=== PATIENT | female | born 1980 | race African-American/Black ===

== ENCOUNTER 2018-12-28 07:50 | Day surgery (SDC) | payer BC ==
[2018-12-24 15:52] VITALS: BMI 60.7
[2018-12-28] MEDS ORDERED: MIDAZOLAM HCL 2 MG/2 ML SINGLE DOSE VIAL ONE ×2 (10:32→11:11)
[2018-12-28] MEDS ORDERED: BUPIVACAINE HCL/PF 2.5 MG/ML - 30 ML VIAL IJ ONE (11:23)
[2018-12-28] MEDS ORDERED: BUPIVACAINE HCL/PF 0.25% (2.5MG/ML) 10 ML VIAL IJ ONE (11:35)
[2018-12-28] MEDS ORDERED: ONDANSETRON 4 MG/2 ML VIAL IVPUSH PRN (11:45)
[2018-12-28] MEDS ORDERED: PROMETHAZINE HCL 25 MG/1 ML VIAL IVPUSH PRN (11:45)
[2018-12-28] MEDS ORDERED: oxyCODONE HCL 5 MG TABLET PO PRN ×2 (11:45→14:18)
--- NOTE | 2018-12-28 12:52 | OP ---
DATE OF OPERATION: 12/28/2018 Done at [facility] SURGEON: Rey Ferrari MD BLOCK INSPECTOR: MAURICIO Del Toro PREOPERATIVE DIAGNOSES: 1. Right knee medial and lateral meniscal tear. 2. Right knee cartilage injury. 3. Right knee synovitis. POSTOPERATIVE DIAGNOSES: 1. Right knee medial and lateral meniscal tear. 2. Right knee cartilage injury. 3. Right knee synovitis. PROCEDURE: 1. Right knee arthroscopy, partial meniscectomy medial and lateral meniscus, CPT code 07433. 2. Right knee arthroscopy with chondroplasty and abrasion-plasty, CPT code 51210. 3. Right knee arthroscopy with synovectomy, CPT code 95524. FINDINGS: 1. Medial meniscus [id number] horn tear. 2. Lateral meniscus anterior 1/3 tear undersurface. 3. Synovitis patellofemoral medial and lateral notch area. 4. Central grade 2-3 cartilage injury 2 cm x 1 cm anterior medial femoral condyle. 5. ACL and PCL intact. 6. Diffuse grade 1-2 cartilage changes lateral joint line. 7. Central grade 2 cartilage injury patella with grade 2-4 changes central portion patellofemoral trochlea. PROCEDURE: Informed consent was obtained. The patient came to the operating room, where the lower extremity was prepped and draped in a sterile fashion. A tourniquet was placed on the upper thigh, but not inflated. Using standard arthroscopic technique, a lateral incision and portal was made to allow for introduction of the camera into the suprapatellar bursa. This was then taken to the medial joint line, where under direct visualization, a medial incision and portal was made. Excessive synovium noted in the medial, lateral and patellofemoral and notch area was removed by an upbiter, shaver and Bovie cautery. This was found to bring in inflammatory tissue into the joint surface, a source of pain and dysfunction. Probing of the medial and lateral meniscus found tears, as described in the findings. These were removed with the upbiter and shaver and taken back to a stable rim. Grade 2 to 3 degenerative changes were treated with a chondroplasty, removing all flaking surfaces with low-setting Bovie along the periphery to prevent further flaking. Grade 4 changes, as noted, were treated with an abrasoplasty, creating a bleeding surface at the bone/cartilage interface. Aggressive debridement with shaver/joanne created bleeding surface. Micro fracture also done when indicated in findings. All areas of the knee were once again reexamined. The knee was then drained and a single suture was placed in all portals. A sterile dressing was placed and the patient was transferred to the recovery room without complication. The PA listed above was present and assisted at surgery. Their presence was absolutely medically necessary for the completion of the procedure. They helped hold the arthroscopy, pass instruments (and implants when indicated) and the procedure could not have been completed without their assistance. REY FERRARI M.D. [id number]
[2018-12-28 14:04] VITALS: TEMP 100
[2018-12-28 15:27] VITALS: PULSE 69
[2018-12-28 16:43] VITALS: BP 126/78
--- NOTE | 2019-01-02 15:02 | PATH ---
Surgical Pathology Report Patient Name: JAYSON GREENE [facility]. Rec. #: [id number] /Age/Gender: 1980 (Age: 38) / F Account: [id number] Location: [facility] Taken: 12/28/2018 Received: 12/28/2018 Reported: 01/02/2019 Physicians: Rey Glover M.D. Specimen(s) Received RIGHT KNEE SHAVINGS Clinical History Internal derangement right knee Final Diagnosis KNEE, RIGHT, ARTHROSCOPIC SHAVINGS: CARTILAGE AND FIBROSYNOVIAL TISSUE SHOWING REACTIVE HYPERPLASIA AND CHRONIC INFLAMMATION. Electronically Signed Lorena Camp M.D. Gross Description Received in formalin labeled "right knee shavings," are multiple fragments of white soft tissue measuring 2.0 x 1.3 x 0.2 cm in aggregate. The formalin is filtered and the specimen is entirely submitted in one cassette. ASAD/12/31/2018 lou/12/31/2018
== END 2018-12-28 16:30 | disposition home or self-care (01) ==
LOC: FASU 07:50
PROVIDERS: ATTEND Orthopaedic Surgery
PROC: 0SBC4ZZ Excision of Right Knee Joint, Percutaneous Endoscopic Approach (ICD-10-PCS; 2018-12-28)
PROC: 0SBC4ZZ Excision of Right Knee Joint, Percutaneous Endoscopic Approach (ICD-10-PCS; 2018-12-28)
PROC: 0SBC4ZZ Excision of Right Knee Joint, Percutaneous Endoscopic Approach (ICD-10-PCS; principal; 2018-12-28 11:20)
DX: S83.241A Other tear of medial meniscus, current injury, right knee, initial encounter (principal); S83.281A Other tear of lateral meniscus, current injury, right knee, initial encounter; S83.8X1A Sprain of other specified parts of right knee, initial encounter; M65.861 Other synovitis and tenosynovitis, right lower leg; X58.XXXA Exposure to other specified factors, initial encounter; Y93.9 Activity, unspecified; Y92.9 Unspecified place or not applicable
CPT/HCPCS: 84703; 88304-TC; 94760